=== PATIENT | male | born 1990 | race Hispanic/Latino ===

== ENCOUNTER 2024-08-11 06:58 | Day surgery (SDC) | payer OTHER ==
[2024-08-07 12:06] LABS: BASOPHILS # (AUTO) 0.06 K/uL (0.00-0.20); BASOPHILS % (AUTO) 0.9 % (0.0-5.0); EOSINOPHILS # (AUTO) 0.24 K/uL (0.00-0.70); EOSINOPHILS % (AUTO) 3.6 % (0.0-8.0); HEMATOCRIT 38.5 % (42-54); IMMATURE GRANULOCYTE ABSOLUTE 0.02 K/uL (0-1); LYMPHOCYTES # (AUTO) 2.5 K/uL (1.0-4.8); LYMPHOCYTES % (AUTO) 37.4 % (21.0-51.0); MEAN CORPUSCULAR HEMOGLOBIN 28.7 pg (27.0-33.0); MEAN CORPUSCULAR HGB CONC 33.8 g/dL (32.0-36.0); MONOCYTES # (AUTO) 0.6 K/uL (0.1-1.0); MONOCYTES % (AUTO) 8.7 % (3.0-13.0); NEUTROPHILS # (AUTO) 3.3 K/uL (1.8-7.7); NEUTROPHILS % (AUTO) 49.1 % (40.0-77.0); PLATELET COUNT (AUTO) 285 K/uL (130-400); RED BLOOD CELL COUNT(AUTO) 4.53 MIL/uL (4.50-6.20); RED CELL DISTRIBUTION WIDTH 12.8 % (11.0-15.5); WHITE BLOOD COUNT (AUTO) 6.7 K/uL (4.8-10.8)
[2024-08-07 12:07] VITALS: BP 114/65; PULSE 63; RESP 18; TEMP 97.8
[2024-08-07 12:17] LABS: INR 1.09 (0.85-1.15); PROTHROMBIN TIME 11.5 SEC (9.6-11.6)
[2024-08-07 12:19] LABS: PARTIAL THROMBOPLASTIN TIME 27.5 SEC (26.3-35.5)
[2024-08-07 12:20] LABS: BILIRUBIN,TOTAL 0.3 mg/dL (0.2-1.0); CREATININE 1.1 mg/dL (0.5-1.3); TOTAL PROTEIN, SERUM 7.2 g/dL (6.0-8.3)
--- NOTE | 2024-08-07 12:55 | EKG ---
[facility] Test Date: 2024-08-07 Test Time: 12:01:06 Pat Name: JOSUÉ VIERA Department: [facility] Patient ID: [id number] Room: Gender: M [employer] Director: [id number] : 1990 Requested By: MARYJANE GUSMAN Order Number: [id number] Reading MD: Ney Alfonso Measurements Intervals [place] Rate: 54 P: 47 NE: 170 QRS: 48 QRSD: 81 T: 46 QT: 384 QTc: 365 Interpretive Statements Sinus rhythm ST elev, probable normal early repol pattern No previous ECG available for comparison Electronically Signed On 08-07-2024 14:53:58 CDT by Ney Alfonso Please click the below link to view image of tracing.
--- NOTE | 2024-08-08 12:45 | NUR ---
REPORTED EKG TO DR. JOHNSON. OK TO PROCEED
[~2024-08-11] VITALS: Ht 160 cm; Wt 86.2 kg
[2024-08-11] VITALS (13 sets, daily range): BP systolic 90–124; BP diastolic 44–78; PULSE 53–75; RESP 15–18; TEMP 97.2–97.7
[~2024-08-11 06:58] MED LIST: ATOR40TA69 PO; DOXY100T2 PO; FENO54TA6 PO; IBUP-2784 PO
[2024-08-11] MEDS ORDERED: LIDOCAINE PF 100MG/5ML (2%) SYRINGE 5ML ONE (07:14)
[2024-08-11] MEDS ORDERED: FENTanyl CITRate PF 50 MCG/1 ML 2ML VIAL ONE (07:15)
[2024-08-11] MEDS ORDERED: proPOFol 10 MG/ML 20ML VIAL IV ONE (07:15)
[2024-08-11] MEDS ORDERED: MIDAZOLAM HCL 1 MG/ML 2ML VIAL ONE (07:15)
[2024-08-11] MEDS ORDERED: ondanSETRON 4MG INJ ONE (07:17)
[2024-08-11] MEDS ORDERED: dexaMETHasone SOD PHOSPHATE 4 MG/ML 1ML VIAL ONE (07:17)
[2024-08-11] MEDS ORDERED: ketOROlac 30MG VIAL (30MG/ML) ONE (07:17)
[2024-08-11] MEDS: ceFAZolin SODIUM 2 GM VIAL IVPB ONE (07:39)
[2024-08-11] MEDS ORDERED: BUPIvacaine/PF 0.5% 30ML VIAL ONE (07:43)
[2024-08-11] MEDS: LACTATED RINGERS 1000ML 1,000 ML IV ONE (07:58)
[2024-08-11] MEDS: ceFAZolin SODIUM 2 GM VIAL ONE (07:58)
--- NOTE | 2024-08-11 08:02 | OP ---
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 He has a history of perianal abscesses. Examination reveal a fistula in anal. He was advised to undergo an anal fistulotomy and all other indicated procedures. Risks were abrasions and alternatives were explained in detail to the patient who granted consent. All questions were answered to his satisfaction.] DESCRIPTION OF PROCEDURE: [The patient was identified in the holding area transferred to the OR placed supine on the operative table. General anesthesia was given, time-out conducted, was placed in lithotomy position with great care taken to pad all pressure points. Perineum was prepped and draped in the usual sterile fashion. Local anesthesia was injected an anal block was given with 0.25% Marcaine for a total 30 mL. Afterwards, fistula tract was identified from the left lateral region to the dentate line. A probe was passed the tract was unroofed. The fistula tract was then biopsy and passed to the back table. A secondary tract was opened up as well and connected to the main tract. We cauterized the base of the tract and checked for hemostasis noted to be excellent. Surgicel was left in the fistula tract. This point surgery was completed. Counts were done and correct. There were no complications. I was present and scrubbed for the entire case.] MARYJANE CLARK MD Aug 11, 2024 08:02
--- NOTE | 2024-08-11 08:50 | NUR ---
DRESSING: DRESSING TO RECTAL AREA DRY/INTACT
== END 2024-08-11 09:20 | disposition home or self-care (01) ==
LOC: DAH 06:58
PROVIDERS: ATTEND Surgery
DX: K60.30 Anal fistula, unspecified (principal); K62.5 Hemorrhage of anus and rectum; L92.9 Granulomatous disorder of the skin and subcutaneous tissue, unspecified; Z79.899 Other long term (current) drug therapy
CPT/HCPCS: 80053; 85025; 85610; 85730; 36415; 93005; 46275; 88304; J1100; J1885; A4663; A4606; J7120; J3010; J2003; J2250; J2704; J2405; J0665 ×2; J0690 ×2; A4215; A4223; A4222; A4221; J3490